=== PATIENT | female | born 1995 | race Caucasian/White ===

== ENCOUNTER 2016-09-16 08:51 | Observation (INO) | payer OTHER | END 2016-09-17 17:38 | disposition home or self-care (01) | LOC: GENOP 08:51 → OB 08:59 → ZEROF 09-17 00:20 → GENOP 09-17 00:20 → ZEROF 09-17 00:20 → OB 09-17 16:04 → ZEROF 09-17 16:04 → OB 09-17 17:38 | PROVIDERS: ADMIT Obstetrics & Gynecology | DX: O33.1 Maternal care for disproportion due to generally contracted pelvis (principal); O99.513 Diseases of the respiratory system complicating pregnancy, third trimester; J45.909 Unspecified asthma, uncomplicated; M06.9 Rheumatoid arthritis, unspecified; O99.333 Smoking (tobacco) complicating pregnancy, third trimester; F17.210 Nicotine dependence, cigarettes, uncomplicated; Z3A.31 31 weeks gestation of pregnancy; Z86.69 Personal history of other diseases of the nervous system and sense organs; Z88.8 Allergy status to other drugs, medicaments and biological substances; Z90.89 Acquired absence of other organs | CPT/HCPCS: 36415; 51702; 59025; 81001; 82731; 83735; 87086; 96360; 96361; 96365; 96366; 96367; 96368; 96372; 96374; 96375; 96376; G0378; J0610; J2300; J3105; J3475; J7120 ==

== ENCOUNTER 2016-09-18 18:04 | Outpatient (CLI) | payer OTHER ==
[2016-09-18 18:58] LABS: RED BLOOD COUNT 3.58 M/UL (4.00-5.10); WHITE BLOOD COUNT 9.1 K/UL (4.5-11.0)
[2016-09-18 19:14] LABS: BUN/CREATININE RATIO 10 (0-10)
== END 2016-09-18 19:43 | disposition other institution (70) ==
LOC: GENOP 18:04
PROVIDERS: Obstetrics & Gynecology
DX: O26.893 Other specified pregnancy related conditions, third trimester (principal); R10.9 Unspecified abdominal pain; R06.02 Shortness of breath; Z3A.31 31 weeks gestation of pregnancy
CPT/HCPCS: 36415; 80053; 81001; 83605; 83880; 84443; 85025; 85379; 96361; 96368; J0290; J1580; J7050; J7120

== ENCOUNTER 2016-10-17 17:10 | Observation (INO) | payer OTHER ==
[2016-10-17 17:41] LABS: HEMOGLOBIN 10.6 gm/dl (12.3-15.3); RED BLOOD COUNT 3.47 M/UL (4.00-5.10)
[2016-10-17 18:02] LABS: BUN/CREATININE RATIO 14 (0-10)
== END 2016-10-17 20:20 | disposition other institution (70) ==
LOC: GENOP 17:10 → OB 17:22
PROVIDERS: ADMIT Obstetrics & Gynecology
DX: O99.89 Other specified diseases and conditions complicating pregnancy, childbirth and the puerperium (principal); M06.9 Rheumatoid arthritis, unspecified; O99.513 Diseases of the respiratory system complicating pregnancy, third trimester; J45.909 Unspecified asthma, uncomplicated; Z3A.35 35 weeks gestation of pregnancy; Z90.89 Acquired absence of other organs; Z86.2 Personal history of diseases of the blood and blood-forming organs and certain disorders involving the immune mechanism; Z79.899 Other long term (current) drug therapy; Z88.6 Allergy status to analgesic agent; Z88.8 Allergy status to other drugs, medicaments and biological substances
CPT/HCPCS: 36415; 51702; 59025; 80048; 80076; 81001; 82962; 85025; 96360; 96361; 96366; 96367; 96374; 96375; 96376; G0378; J0610; J3475; J7120

== ENCOUNTER 2020-10-13 12:41 | Emergency (ER) | payer OTHER | END 2020-10-13 15:17 | disposition left against medical advice (07) | LOC: ER1 12:41 | DX: Z53.21 Procedure and treatment not carried out due to patient leaving prior to being seen by health care provider (principal) | CPT/HCPCS: 93005 ==

== ENCOUNTER → 2021-02-17 | Outpatient (CLI) | payer OTHER ==
[2021-02-18 08:13] LABS: COMPLEMENT C3, SERUM 98 mg/dL (82-167); COMPLEMENT C4, SERUM 6 mg/dL (12-38); HBSAG SCREEN Negative (Negative); RHEUMATOID ARTHRITIS FACTOR <10.0 IU/mL (0.0-13.9)
[2021-02-18 12:09] LABS: HCV AB <0.1 (0.0-0.9)
[2021-02-22 07:11] LABS: QUANTIFERON MITOGEN VALUE >10.00 IU/mL (.); QUANTIFERON NIL VALUE 0.02 IU/mL (.); QUANTIFERON TB1 AG VALUE 0.02 IU/mL (.); QUANTIFERON TB2 AG VALUE 0.02 IU/mL (.); QUANTIFERON-TB GOLD PLUS Negative (Negative)
== END ==
LOC: LAB 11:59
PROVIDERS: Nurse Practitioner Family
DX: Z11.59 Encounter for screening for other viral diseases (principal); M79.643 Pain in unspecified hand; M19.071 Primary osteoarthritis, right ankle and foot; M20.11 Hallux valgus (acquired), right foot
CPT/HCPCS: 36415; 73130; 73630; 81001; 82570; 83520; 84156; 85652; 86140; 86160; 86162; 86200; 86431; 86704; 86803; 87340

== ENCOUNTER 2021-06-12 16:42 | Emergency (ER) | payer OTHER | END 2021-06-12 18:11 | disposition left against medical advice (07) | LOC: ER1 16:42 | DX: Z53.21 Procedure and treatment not carried out due to patient leaving prior to being seen by health care provider (principal) | CPT/HCPCS: 93971 ==